=== PATIENT | female | born 1950 | race Caucasian/White ===

== ENCOUNTER → 2020-07-29 12:19 | Outpatient (CLI) | payer MEDICARE, SELFPAY ==
--- NOTE | ~2020-07-29 | MR_ITS ---
EXAMINATION: MR brain/brain stem wo con DATE: 07/29/2020 12:51 INDICATION: Transient ischemic attack. TECHNIQUE: Magnetic resonance imaging (MRI) of the brain and brainstem was performed without intraven ous contrast. Sequences included sagittal and axial T1-weighted FSE, axial diffusion-weighted FS EPI, axial T2*-weighted GRE, axial T2-weighted FLAIR Propeller, and axial T2-weighted Propeller. Apparent diffusion coefficient (ADC) maps were created. COMPARISON: Brain MRI 05/02/2019 FINDINGS: There are scattered areas of nonspecific increased T2-weighted signal intensity in the cere bral white matter and hay. There is no intracranial hemorrhage, acute infarction, or abnormal intrac ranial mass lesion. The ventricles are normal in size. The paranasal sinuses are clear. There are lik mario changes of ocular lens replacement surgeries. The mastoid air cells are normal. IMPRESSION: 1. 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 Reviewed, dictated and finalized at location A. IMPRESSION: 1. Stable moderate nonspecific cerebral white matter disease and pontine diseas e, which likely represents chronic small vessel ischemic disease.
== END ==
PROVIDERS: PCP Internal Medicine; Visit Provider Internal Medicine
DX: G45.9 Transient cerebral ischemic attack, unspecified (principal)
CPT/HCPCS: 70551

== ENCOUNTER → 2021-05-02 14:15 | Outpatient (CLI) | payer MEDICARE, SELFPAY ==
--- NOTE | ~2021-05-02 | XR_ITS ---
XR shoulder LT min 2V DATE: 05/02/2021 15:20 INDICATION: Left shoulder pain TECHNIQUE: 4 views COMPARISON: 02/14/2019 left shoulder FINDINGS: There is diffuse osteopenia. No fracture or dislocation, periosteal reaction or bone destruction. No abnormal calcification of th e left shoulder. Diffuse idiopathic skeletal hyperostosis of the thoracic spine. Aortic calcification. IMPRESSION: Osteopenia Reviewed, dictated and finalized at location B. IMPRESSION: Osteopenia
--- NOTE | ~2021-05-02 | MR_ITS ---
EXAMINATION: MR shoulder LT wo con DATE: 05/02/2021 15:11 INDICATION: Left rotator cuff tear presenting with left shoulder pain, burning sensation, weakness an d limited range of motion TECHNIQUE: Magnetic resonance imaging (MRI) of the left shoulder was performed without intravenous co ntrast. Sequences included axial PD-weighted FS FSE, coronal oblique PD-weighted FS FSE, coronal obli que T2-weighted FS FSE, sagittal PD-weighted FS FSE, and sagittal T1-weighted SE. COMPARISON: None. FINDINGS: Evaluation mildly limited by some degree of motion blurring on the majority of the sequences. Coracoacromial arch: The acromion undersurface is curved in morphology (type II). The coracoacromial ligament is normal. M inimal acromioclavicular osteoarthritis. Rotator cuff: Supraspinatus and infraspinatus tendinopathy with small articular sided tear measuring 6 mm AP along the superior facet footplate of the supraspinatus tendon which involves approximately one half of the tendon thickness. The teres minor tendon is normal. Mild tendinopathy of the cephalad aspect of the subscapularis tendon without discrete tear. Normal rotator cuff muscle bulk and signal. Biceps tendon, glenoid labrum and glenohumeral cartilage: Tendinopathy of the intra-articular long head biceps tendon. Glenoid labrum is normal. Glenohumeral c artilage is normal. Fluid: Physiologic amount of fluid in the glenohumeral joint and biceps tendon sheath. No loose osteochondra l bodies. Small amount of fluid in the subacromial/subdeltoid bursa consistent with mild bursitis. Bones: Normal marrow signal with no edema, fracture or abnormal marrow replacing process. IMPRESSION: 1. Mild rotator cuff tendinopathy with small moderate severity partial-thickness articular sided tear at the superior facet footplate of the supraspinatus tendon. 2. Mild tendinopathy of the intra-articular long head biceps tendon. 3. Mild subacromial/subdeltoid bursitis. Reviewed, dictated and finalized at location A. IMPRESSION: 1. Mild rotator cuff tendinopathy with small moderate severity partial-thicknes s articular sided tear at the superior facet footplate of the supraspinatus ten don. 2. Mild tendinopathy of the intra-articular long head biceps tendon. 3. Mild subacromial/subdeltoid bursitis.
== END ==
PROVIDERS: PCP Internal Medicine; Visit Provider Internal Medicine
DX: M75.102 Unspecified rotator cuff tear or rupture of left shoulder, not specified as traumatic (principal); M75.52 Bursitis of left shoulder; M85.812 Other specified disorders of bone density and structure, left shoulder
CPT/HCPCS: 73030; 73221

== ENCOUNTER 2022-01-16 16:44 | Outpatient (CLI) | payer MEDICARE, SELFPAY ==
--- NOTE | ~2022-01-16 | US_ITS ---
US renal BI DATE: 01/16/2022 17:41 INDICATION: Renal failure TECHNIQUE: Real-time imaging of kidneys and urinary bladder COMPARISON: None FINDINGS: The right kidney measures 9.1 cm, the left kidney 9.7 cm. 2 x 2.2 cm left renal upper pole cyst. No suspicious solid lesion of either kidney is noted. Renal parenchymal echogenicity appears somewhat prominent, suggesting chronic renal medical disease. The urinary bladder is unremarkable. IMPRESSION: Increased echogenicity of the renal parenchyma suggesting chronic medical disease No hydronephrosis Approximately 2.2 cm upper pole left renal cyst Reviewed, dictated and finalized at [facility]. Reviewed, dictated and finalized at location A. IMPRESSION: Increased echogenicity of the renal parenchyma suggesting chronic m edical disease No hydronephrosis Approximately 2.2 cm upper pole left renal cyst
== END 2022-01-16 16:45 | disposition home or self-care (01) ==
PROVIDERS: PCP Internal Medicine; Visit Provider Internal Medicine
DX: N17.9 Acute kidney failure, unspecified (principal); N28.1 Cyst of kidney, acquired
CPT/HCPCS: 76775